=== PATIENT | female | born 1960 | race Caucasian/White ===

== ENCOUNTER 2023-08-07 10:45 | Outpatient (OUT) | payer OTHER, SELFPAY ==
--- NOTE | 2023-08-07 10:53 | MM_ITS ---
Patient Name: FÁTIMA BROWNE MR#: [id number] : 1960 Exam Date: 08/07/2023 Ordering Doctor: DR SOFIA ROBLERO D.O. RADIOLOGY REPORT PROCEDURE: MM TOMOSYNTHESIS SCREENING BI COMPARISON: MG MAMM SCREEN 3D ROBERT CAD, 03/18/2021. MG MAMM SCREEN ROBERT W CAD, 10/29/2019. INDICATIONS: Screening Calculator Name NCI Breast Cancer Risk Assessment Tool 5 Year Breast Cancer Risk 1.40% Lifetime Breast Cancer Risk 5.80% Personal Breast Cancer No Personal Ovarian Cancer No Treatments None Family Cancers Aunt-maternal with breast cancer at age ~55. LOCATION: [facility] BREAST COMPOSITION: Heterogeneously dense,which may obscure small masses. FINDINGS: DIAGNOSTIC CATEGORY 1--NEGATIVE. NO CHANGE FROM COMPARISON ASSESSMENT. Scattered benign-appearing calcifications are present. RIGHT BREAST: No significant suspicious finding. LEFT BREAST: No significant suspicious finding. RECOMMENDATIONS: ROUTINE MAMMOGRAM AND CLINICAL EVALUATION IN 12 MONTHS. PLEASE NOTE: A NORMAL MAMMOGRAM DOES NOT EXCLUDE THE POSSIBILITY OF BREAST CANCER. A CLINICALLY SUSPICIOUS PALPABLE LUMP SHOULD BE BIOPSIED. Dictated by: Gordon Valdez MD on 08/07/2023 at 12:51 Approved by: Gordon Valdez MD on 08/07/2023 at 12:52
== END 2023-08-07 10:46 | disposition home or self-care (01) ==
PROVIDERS: PCP Internal Medicine; Visit Provider Internal Medicine
DX: Z12.31 Encounter for screening mammogram for malignant neoplasm of breast (principal); Z80.3 Family history of malignant neoplasm of breast
CPT/HCPCS: 77063; 77067

== ENCOUNTER 2025-01-05 08:27 | Outpatient (OUT) | payer MEDICARE, SELFPAY ==
--- OUTSIDE RECORDS SUMMARY | 2025-01-05 08:32 | XMS_ITS | CCD ---
Author Organization [facility] Care Team Providers [facility] Consultant Name Role Phone GUSTAVO COYLE Admitting Unavailable GUSTAVO COYLE Attending Unavailable DR ASA CHURCH Consulting Unavailable GUSTAVO COYLE Consulting Unavailable ALDO TEMPLE Attending Unavailable TIM ROBLERO JR Referring Unavailable TIM ROBLERO JR Primary Care Unavailable ROSALINA JON Admitting Unavailable ROSALINA JON Attending Unavailable ROSALINA JON Referring Unavailable TIM ROBLERO JR Primary Care Unavailable ROSALINA JON Attending Unavailable ROSALINA JON Referring Unavailable TIM ROBLERO JR Primary Care Unavailable NOEMI ROBERTSON Attending Unavailable TIM ROBLERO JR Primary Care Unavailable Problems Problem Classification Problem Date Documented Da te Episodic/Chronic Gastritis and duodenitis (1 source) Acute gastritis without bleeding; Translations: [Acute gastritis without bleeding] Onset: 01-10-2024 Episodic Other gastrointestinal disorders (1 source) Other fecal abnormalities; Translations: [Other fecal abnormalities] Onset: 01-02-2024 Episodic Other screening for suspected conditions (not mental disorders or infectious disease) (4 sources) Encounter for screening mammogram for malignant neoplasm of breast; Translations: [ENC SCR MAMMO MALIG NEOPLASM BREAST] Onset: 03-18-2021 Episodic Residual codes; unclassified (1 source) Family history of malignant neoplasm of breast; Translations: [FAMILY HX MALIG NEOPLASM OF BREAST] Onset: 04-14-2021 Episodic Unclassified (2 sources) Positive Cologuard Onset: 01-02-2024 Unclassified (1 source) Esophagitis, unspecified without bleeding; Translations: [Esophagitis, unspecified without bleeding] Onset: 01-10-2024 Results Test Name Value Interpretation Reference Range Facility Glucose Glucometer (BldC) [M ass/Vol]on 01-10-2024 Glucose [Mass/Vol] 74 mg/dL Normal 65-99 [facility] Glucose [Mass/Vol] 70 mg/dL Normal 65-99 [facility] H PYLORI SCREENon 01-10-2024 H. pylori Org specific cx Ql (Essie fld) Negative Normal NEG [facility] Comment on above: Performed By: #### [id number] #### [facility] ([id number]) [address] [place] [address], [address] [place] [address] Surgical Pathologyon 024 Surgical Pathology Normal [facility] Comment on above: Result Comment: [employer] [facility] [address] [place] [address] Surgical Pathology Consultation Patient Name:ISABELA HAMILTON:1960 (Age: 63)Gender:FTaken:4Reported:01/16/2024hysician(s):Rosalina Jon D.O. ([phone])Copy To: Rec. #:[id number]: #[id number] Final Pathologic Diagnosis 1. Gastric antrum biopsy: Reactive gastritis/gastropathy. No dysplasia or intestinal metaplasia identified. Immunohistochemical stain for Helicobacter pylori (with adequate control) is negative. 2. Distal esophageal biopsy: Squamous esophageal and columnar squamocolumnar junctional mucosa showing mild chronic inflammation, and mild reactive squamous changes suggestive of reflux injury. No dysplasia or goblet cell metaplasia identified. Report Electronically Signed Out ao/4Aede Hazel MD Interpretation performed at [facility], [address] [place] [address], License number: [id number]. Clinical History Positive cologuard. Gross Description 1. Received in formalin labeled, HAMILTON antrum BX are 2 pale-ellison delicate soft tissue fragments, 0.2 and 0.5 cm in greatest dimension. The specimens are filtered and submitted in a single cassette. (1, ns, [id number], m7) TB 2. Received in formalin labeled, HAMILTON, distal esophagus BX are 4 pale-ellison delicate soft tissue fragments, 0.1-0.2 cm in greatest dimension. The specimens are filtered and submitted in a single cassette. (1, ns, [id number], m7) TB tgb/01/10/2024NSK Specimen(s) Received 1: Antrum biopsy 2: Distal esophageal biopsy Fee Codes(s): 1; 67418, 08735 2; 49104 MG MAMM SCREEN 3D ROBERT CADon 03-18-2021 MG MAMM SCREEN 3D ROBERT CAD Patient: ISABELA HAMILTON Exam Date: 03/18/2021 : 1960 Gender:F Ordering : DR. GUSTAVO COYLE . Admission #: [id number] Family : Order #: [id number] CLICK HERE TO VIEW EXAM RADIOLOGY REPORT PROCEDURE: MAMMOGRAM SCREENING 3D BILATERAL CAD COMPARISON: MG MAMM SCREEN ROBERT W CAD, 10/29/2019. MG MAMM SCREEN ROBERT W CAD, 09/03/2018. INDICATIONS: Screening mammography Calculator Name NCI Breast Cancer Risk Assessment Tool 5 Year Breast Cancer Risk 1.40% Lifetime Breast Cancer Risk 6.20% Personal Breast Cancer No Personal Ovarian Cancer No Treatments None Family Cancers Aunt-maternal with breast cancer at age 55. LOCATION: [facility] BREAST COMPOSITION: Heterogeneously dense, which may obscure small masses. FINDINGS: DIAGNOSTIC CATEGORY 2--BENIGN FINDING: RIGHT BREAST: No significant suspicious finding. Scattered benign-appearing calcifications are present. No significant change has occurred. LEFT BREAST: No significant suspicious finding. Scattered benign-appearing calcifications are present. No significant change has occurred. RECOMMENDATIONS: ROUTINE MAMMOGRAM AND CLINICAL EVALUATION IN 12 MONTHS. PLEASE NOTE: A NORMAL MAMMOGRAM DOES NOT EXCLUDE THE POSSIBILITY OF BREAST CANCER. A CLINICALLY SUSPICIOUS PALPABLE LUMP SHOULD BE BIOPSIED. Dictated by: Asa Church M.D. on 03/22/2021 at 13:09 Approved by: Asa Church M.D. on 03/22/2021 at 13:17 Normal [facility] ANES POSTPROC EVALon 020 ANES POSTPROC EVAL HNO ID: [id number] Author: Kerry Grijalva Service: ? Author Type: Physician Type: Anesthesia Postprocedure Evaluation Filed: 02/18/2020 10:38 AM Note Text: POST ANESTHESIA EVALUATION NOTE : 1960 Procedure Summary Date: 02/18/20 Room / Location: [address] Anesthesia Start: 942 Anesthesia Stop: 1010 Procedures: PHACOEMULSIFICATION CATARACT IMPLANT INTRAOCULAR LENS W/O ENDOSCOPIC CYCLOPHOTOCOAGULATION (Right Eye) OPHTHALMIC BIOMETRY BY PARTIAL COHERENCE INTERFEROMETRY W/INTRAOCULAR LENS POWER CALCULATION (Right Eye) INITIAL INSERT ANT SEGMENT AQUEOUS DRAIN DEVICE W/O EXTRAOCULAR RESERVOIR INTERNAL APPROACH INTO TRABECULAR MESHWORK (Right Eye) Diagnosis: Combined form of senile cataract of right eye Surgeon: Donny Guevara V Responsible Provider: Kerry Grijalva Anesthesia Type: MAC ASA Status: 3 Anesthesia Type: MAC Last vitals Vitals Value Taken Time BP 119/76 02/18/2020 10:20 AM Temp 36.4 ?C (97.5 ?F) 02/18/2020 10:12 AM Pulse 86 02/18/2020 10:20 AM HR SpO2 86 02/18/2020 10:38 AM Resp 16 02/18/2020 10:20 AM SpO2 94 % 02/18/2020 10:20 AM Post Anesthesia Patient Status Patient Evaluation: PACU. PACU/ICU Patient Condition: stable. Anticipated Disposition: phase 2 then home. Neurological Status: aware and responsive. Pulmonary Status: breathing comfortably on room air Airway Control: returned to baseline unsupported. Cardiovascular Status: stable. Pain Management: clinically adequate - multimodal analgesia pain management approach Postoperative Hydration: acceptable. Intraoperative Events: no significant anesthesia events Post Operative Nausea/Vomiting Status: Anesthetic Observations: no significant anesthetic observations Recommendation: continue current plan of care. SIGNATURE: Kerry Grijalva MD PATIENT NAME: Isabela Hamilton DATE: February 18, 2020 TIME: 10:38 AM CSN: [id number] Normal [facility] ANES PRE-OPon 02-18-2020 ANES PRE-OP HNO ID: [id number] Author: Kerry Grijalva Service: ? Author Type: Physician Type: Anesthesia Preprocedure Evaluation Filed: 02/18/2020 9:25 AM Note Text: ANESTHESIOLOGY DAY OF SURGERY NOTE : 1960 Procedure(s) (LRB): PHACOEMULSIFICATION CATARACT IMPLANT INTRAOCULAR LENS W/O ENDOSCOPIC CYCLOPHOTOCOAGULATION (Right) OPHTHALMIC BIOMETRY BY PARTIAL COHERENCE INTERFEROMETRY W/INTRAOCULAR LENS POWER CALCULATION (Right) INITIAL INSERT ANT SEGMENT AQUEOUS DRAIN DEVICE W/O EXTRAOCULAR RESERVOIR INTERNAL APPROACH INTO TRABECULAR MESHWORK (Right) Surgeon(s): Donny Guevara V Estimated body mass index is 21.48 kg/m? as calculated from the following: Height as of 02/04/20: 152.4 cm (5'). Weight as of 02/04/20: 49.9 kg (110 lb). Most recent hematocrit and potassium results: No results found for this basename: HCT,HEMATOCRIT,K,POTASSIU M Relevant Problems PULMONARY (+) Chronic obstructive pulmonary disease (COPD) (HCC) NEURO-PSYCH (+) TIA (transient ischemic attack) ENDO (+) Diabetes mellitus, type 2 (HCC) Other (+) HLD (hyperlipidemia) (+) Tobacco abuse I - PHYSICAL EVALUATION AIRWAY Patient intubated: No. Mallampati: I. TM distance: >3 FB. Neck ROM: full ROM without neurological symptoms. Mouth opening: adequate. Short neck: no. Thick neck: no DENTAL Dental findings: teeth intact. Additional exam findings: no II - ANESTHESIA PLAN ASA Score: 3 Anesthetic Plan: MAC NPO Status: adequate Monitoring plan: standard ASA. Postoperative analgesic plan: parenteral or oral opioids. Anesthetic Risks, Benefits, Alternatives, Personnel Discussed. Consent obtained from: patient. Patient / Surrogate agrees to blood products: blood products not planned Significant changes in the patient condition since the History and Physical, not otherwise documented in primary service progress note: no. Potential Anesthesia issues that may suggest increased risk of complications or contractions to planned procedure: none. Vitals Value Taken Time BP 136/71 02/18/2020 9:17 AM Pulse 80 02/18/2020 9:17 AM Resp 16 02/18/2020 9:17 AM Temp 36.3 ?C (97.4 ?F) 02/18/2020 9:17 AM SpO2 95 % 02/18/2020 9:17 AM Facility-Administered Medications as of 02/18/2020 Medication Dose Route Frequency - [COMPLETED] tetracaine (PF) 0.5 % 2 Drop (OPTICAINE) 2 Drop LEFT EYE q 5 MIN - [COMPLETED] PHENYLephrine 2.5 % 1 Drop (AK-DILATE, ENEDINA-SYNEPHRINE) 1 Drop LEFT EYE EVERY 5 MINUTES X 3 DOSES - [COMPLETED] tropicamide 1 % 1 Drop (MYDRIACYL) 1 Drop LEFT EYE EVERY 5 MINUTES X 3 DOSES - [COMPLETED] ketorolac 0.5 % 1 Drop (ACULAR) 1 Drop LEFT EYE q 5 MIN - [COMPLETED] Povidone-Iodine 5 % 30 mL ophth soln (BETADINE) 30 mL LEFT EYE ONCE - [COMPLETED] balanced salts 15 mL (BSS) 15 mL LEFT EYE ONCE Outpatient Medications as of 02/18/2020 Medication Sig - prednisoLONE acetate (PRED FORTE, ECONOPRED PLUS) 1 % ophthalmic suspension USE DIRECTED BY PHYSICIAN, IN OPERATIVE EYE, BEGINNING ONE DAY AFTER SURGERY - ketorolac (ACULAR) 0.5 % ophthalmic solution USE DIRECTED BY PHYSICIAN, IN OPERATIVE EYE, BEGINNING ONE DAY AFTER SURGERY - pioglitazone (ACTOS) 15 mg tablet Take 1 tablet by mouth once daily. - rosuvastatin (CRESTOR) 20 mg tablet - montelukast (SINGULAIR) 10 mg tablet - SYNJARDY XR 12.5-1,000 mg XR tab - desvenlafaxine ER (PRISTIQ) 100 mg 24 hr tablet - OZEMPIC 1 mg/dose (2 mg/1.5 mL) pnij - bromocriptine (CYCLOSET) 0.8 mg tablet Take 0.8 mg by mouth once daily. - ergocalciferol, vitamin D2, (VITAMIN D2 ORAL) Take by mouth. - latanoprost (XALATAN) 0.005 % ophthalmic solution 1 Drop daily at bedtime. - EZETIMIBE ORAL Take 5 mg by mouth. - budesonide/formoterol fumarate (SYMBICORT INHALATION) Inhale as instructed. - mometasone furoate (NASONEX NASAL) Use in the nose. I have interviewed and examined the patient. I have reviewed the medical record and/or the pre-anesthesia evaluation, pertinent labs, and test results. This contains updated information obtained within 48 hours of Surgery/Procedure. SIGNATURE: Kerry Grijalva MD PATIENT NAME: Isabela Hamilton DATE: February 18, 2020 TIME: 9:21 AM CSN: [id number] Normal [facility] NURSING PROGon 02-18-2020 NURSING PROG HNO ID: [id number] Author: Kristin Valdez) NAOMIE Courtney Service: ? Author Type: Registered Nurse Type: Nursing Progress Note Filed: 02/18/2020 10:20 AM Note Text: POST OP LEARNING RESPONSE INSTRUCTION PROVIDED TO: Patient and family member METHOD OF INSTRUCTION: Written instruction - handouts Verbal instruction PATIENT / FAMILY RESPONSE: Verbalizes understanding of: PAIN MANAGEMENT-Effective strategies to manage pain in addition to pain medication POST-OPERATIVE INSTRUCTIONS-Correct actions to take to reduce postoperative complications SYMPTOM MANAGEMENT-Correct actions to take to manage symptoms associated with his/her disease/illness WORSENING CONDITION-Signs and symptoms of a worsening condition that warrant a call to the physician FOLLOW-UP PLAN: Patient instructed to call with any further issues Contact information given. SUPPLEMENTAL MATERIAL: None REFERRAL (RECOMMENDATION): None Electronically Signed By: Kristin Courtney RN In Department: AMBULATORY SURGERY [facility] OPERATIVE NOon 02-18-2020 OPERATIVE NO HNO ID: [id number] Author: Donny Guevara V Service: Ophthalmology Author Type: Physician Type: Operative Report Filed: 02/18/2020 10:12 AM Note Text: OPERATIVE REPORT DATE OF SERVICE: February 18, 2020 PRIMARY SURGEON: Donny Guevara M.D. ADJUNCT TRAINER: None OPERATION: Phacoemulsification of cataract, insertion of toric posterior chamber intraocular lens implant, insertion of iStent, right eye. ANESTHESIA: Topical with monitored anesthesia care. PREOPERATIVE DIAGNOSIS: Combined cataract, mild primary open angle glaucoma, regular astigmatism POSTOPERATIVE DIAGNOSIS: Combined cataract, mild primary open angle glaucoma, regular astigmatism OPERATIVE INDICATIONS: BAT, astigmatism, mild primary open angle glaucoma with current use of topical ocular hypotensive OPERATIVE PROCEDURE: The patient was admitted to the operating suite where an IV and BP, EKG, and O2 monitors were placed. Nasal oxygen was administered. The operative eye was confirmed, marked, then pretreated with 2.5% tropicamide, 1% phenylephrine, and ciprofloxacin eye drops.Tetracaine drops were placed in the eye, then the patient was positioned seated on the side of the bed. With the patient fixing on a distant target, we placed osorio at the 3 and 9 o?clock position at the surgical limbus using a purple surgical marker. After repositioning the patient in the supine position, topical lidocaine gel 2% was placed in a small ribbon in the lower cul-de-sac. The patient was then prepped and draped in the usual sterile fashion for intraocular surgery. After a time-out confirming correct patient, correct eye, correct operation, presence of allergies, and correct implant, an eyelid speculum was placed. Under the operating microscope a beveled clear corneal incision was created temporally with a Blue Eye blade then a 2.4 mm keratome. Viscoat was introduced into the anterior chamber with a 30 gauge canula. The anterior capsule was opened centrally. Using the Utrata forceps a continuous curvilinear capsulorrhexis of approximately 5.5 mm round was created. Gentle hydrodissection was accomplished using preservative-free lidocaine on a 27-gauge cannula. Using the Graham phacoemulsification unit with the Countdown curved tip, the anterior chamber was entered and the nucleus was removed while it was in the bag. The epinuclear ring was dissected into several segments, then removed using the phacoemulsification unit set to the desired aspiration flow rate and ultrasound parameters. It was necessary to use chopper forceps at various intervals to aid in the fragmentation of the dense lens material. Great care was taken not to violate the posterior capsule. The silicone-tipped I and A instrument was used to remove the cortex and buff off any remaining cataractous material from the posterior capsule. The capsular bag was then reformed with Discovisc and a 24.5 diopter [id number] cylindrical power toric AcrySof lens was inserted through the lips of the wound into the capsular bag. The Intraocular lens was then rotated to an axis of 92 degrees, using the previously placed scleral ink markings as a guide. The axis determination was dictated by the preoperative vector analysis. Using the I and A instrument, the Discovisc was removed from the anterior chamber and capsular bag, and the implant was centered. The patient's head was positioned away from the operating scope, and the operating scope was positioned for intraoperative gonioscopy and iStent insertion. Viscoat was used to form the anterior chamber and to aid in visualization of the nasal anterior chamber angle. Viscoat was also used as a coupling agent for the gonioscopic lens that was placed on the cornea. Under indirect visualization with the gonioscopic lens, two iStent inject stents were placed into the trabecular meshwork in succession, approximately 2 clock hours apart. Reflux of heme was observed through the stents, confirming correct positioning. The patient's head was rotated back into primary position, and the Viscoat was removed from the eye using the silicone-tipped I/A unit. Cefuroxime 1mg in 0.1 mL normal saline was then introduced into the anterior chamber through the clear corneal incision using a 30 gauge canula. The wound was checked and found to be watertight. At the end of the procedure, the cornea was clear, the anterior chamber was deep and clear, the pupil was round, the lens implant was centered within the capsular bag, and the posterior capsule was intact. The eyelid speculum was removed and prednisolone eye drops were administered. A shield was affixed over the eye and the patient was sent to the recovery room, leaving the operating room in excellent condition. ESTIMATED BLOOD LOSS: <1mL SPECIMEN: None FINDINGS: Age-related cataract COMPLICATIONS: None Incision/Procedure Start Time: 10:00 AM Incision Close/Procedure End Time: 10:08 AM - Comanage with Dr Yadira Squires, OD; [facility] Donny GUEVARA MD [facility] PROGRESSon 02-18-2020 PROGRESS HNO ID: [id number] Author: Drew Soni (Od) Lucretia Service: ? Author Type: GUM DIPPER Type: Progress Notes Filed: 02/18/2020 8:33 AM Note Text: Encounter Diagnosis ICD-10-CM 1. Examination following surgery Z09 Impression: S/P PCIOL OS Aim [place] OU Excellent vision OS Plan: Proceed with second eye The nature of the patient's eye disease, its relationship to systemic health, its genetic components, and its prognosis have been explained to the patient/family. The treatment options/risks/benefits have been discussed. Questions answered. I have interviewed and examined Isabela Hamilton. I have confirmed and edited as necessary the chief complaint, history of present illness, past medical history, medications, family history, social history, review of systems, and exam findings as obtained by others. I agree with the assessment and plan as stated above, and have discussed the management with the patient. Drew Boykin, OD February 18, 2020 8:32 AM [facility] PT EDon 02-18-2020 PT ED HNO ID: [id number] Author: Carlton (Rn) NAOMIE Mitchell Service: Nursing Author Type: Registered Nurse Type: Patient Education Filed: 02/18/2020 9:31 AM Note Text: PRE OP LEARNING ASSESSMENT PROCEDURE/SURGERY: SURGERY: right eye catarct READINESS TO LEARN COGNITIVE ABILITY: Alert and oriented MOTIVATION TO LEARN: Eager FAMILY SUPPORT: High - Very involved in pt care PATIENT LEARNS BEST BY: Individual Instruction FACTORS AFFECTING LEARNING: None PHYSICAL LIMITATIONS AFFECTING LEARNING: None Electronically Signed By: Carlton Mitchell RN In Department: AMBULATORY SURGERY [facility] Coronavirus 2019on 0 COVID 19 Result WARD ASSISTANT Negative Normal Negative for COVID19 (SARS CoV2) by PCR. [facility] Comment on above: Result Comment: This test was developed and its performance characteristics determined by [facility] [place]. This test has been authorized by FDA under an Emergency Use Authorization (EUA). This test has been validated in accordance with the FDA's Guidance Document Policy for Diagnostics Testing in Laboratories Certified to Perform High Complexity Testing under CLIA prior to Emergency use Authorization for Coronavirus Disease 2019 during the Public Health Emergency issued on October 25, 2019. Performed By: #### C OVID ####[place] [id number] [place], [place] [phone] COVID 19 Source WARD ASSISTANT Nasopharyngeal Swab Normal [facility] Comment on above: Performed By: #### C OVID ####[id number] [place], [place] [phone] ANES POSTPROC EVALon 020 ANES POSTPROC EVAL HNO ID: [id number] Author: Chdad Javier Service: ? Author Type: Physician Type: Anesthesia Postprocedure Evaluation Filed: 02/04/2020 9:29 AM Note Text: POST ANESTHESIA EVALUATION NOTE : 1960 Procedure Summary Date: 02/04/20 Room / Location: [place] [address] / [facility] Anesthesia Start: 851 Anesthesia Stop: 912 Procedures: PHACOEMULSIFICATION CATARACT IMPLANT INTRAOCULAR LENS W/O ENDOSCOPIC CYCLOPHOTOCOAGULATION (Left Eye) OPHTHALMIC BIOMETRY BY PARTIAL COHERENCE INTERFEROMETRY W/INTRAOCULAR LENS POWER CALCULATION (Left Eye) INITIAL INSERT ANT SEGMENT AQUEOUS DRAIN DEVICE W/O EXTRAOCULAR RESERVOIR INTERNAL APPROACH INTO TRABECULAR MESHWORK (Left Eye) Diagnosis: Combined form of senile cataract of left eye Surgeon: Donny Guevara V Responsible Provider: Chadd Javier Anesthesia Type: MAC ASA Status: 2 Anesthesia Type: MAC Last vitals Vitals Value Taken Time BP 114/71 02/04/2020 9:19 AM Temp 36.2 ?C (97.2 ?F) 02/04/2020 9:19 AM Pulse 92 02/04/2020 9:19 AM HR SpO2 92 02/04/2020 9:19 AM Resp 16 02/04/2020 9:19 AM SpO2 94 % 02/04/2020 9:19 AM Post Anesthesia Patient Status Patient Evaluation: PACU. PACU/ICU Patient Condition: stable. Anticipated Disposition: phase 2 then home. Neurological Status: aware and responsive. Pulmonary Status: breathing comfortably on room air Airway Control: returned to baseline unsupported. Cardiovascular Status: stable. Pain Management: satisfactory to patient Postoperative Hydration: acceptable. Intraoperative Events: no significant anesthesia events Recommendation: continue current plan of care. SIGNATURE: Chadd Javier MD PATIENT NAME: Isabela Hamilton DATE: February 04, 2020 TIME: 9:29 AM CSN: [id number] [facility] ANES PRE-OPon 02-04-2020 ANES PRE-OP HNO ID: [id number] Author: Chadd Javier Service: ? Author Type: Physician Type: Anesthesia Preprocedure Evaluation Filed: 02/04/2020 8:25 AM Note Text: ANESTHESIOLOGY DAY OF SURGERY NOTE : 1960 Procedure(s) (LRB): PHACOEMULSIFICATION CATARACT IMPLANT INTRAOCULAR LENS W/O ENDOSCOPIC CYCLOPHOTOCOAGULATION (Left) OPHTHALMIC BIOMETRY BY PARTIAL COHERENCE INTERFEROMETRY W/INTRAOCULAR LENS POWER CALCULATION (Left) INITIAL INSERT ANT SEGMENT AQUEOUS DRAIN DEVICE W/O EXTRAOCULAR RESERVOIR INTERNAL APPROACH INTO TRABECULAR MESHWORK (Left) Surgeon(s): Donny Guevara V Estimated body mass index is 21.48 kg/m? as calculated from the following: Height as of this encounter: 152.4 cm (5'). Weight as of this encounter: 49.9 kg (110 lb). Most recent hematocrit and potassium results: No results found for this basename: HCT,HEMATOCRIT,K,POTASSIU M Relevant Problems Other (+) Primary open angle glaucoma (POAG) of both eyes, mild stage I - PHYSICAL EVALUATION AIRWAY Patient intubated: No. Mallampati: II. TM distance: >3 FB. Neck ROM: full. Mouth opening: adequate. Short neck: no. DENTAL Normal dental observations. Dental findings: teeth intact. Additional exam findings: no II - ANESTHESIA PLAN ASA Score: 2 Anesthetic Plan: MAC NPO Status: adequate Monitoring plan: Standard ASA. Postoperative analgesic plan: parenteral or oral opioids. Anesthetic Risks, Benefits, Alternatives, Personnel Discussed. Consent obtained from: patient. Patient / Surrogate agrees to blood products: blood products not planned Significant changes in the patient condition since the History and Physical, not otherwise documented in primary service progress note: no. Potential Anesthesia issues that may suggest increased risk of complications or contractions to planned procedure: none. No vitals data found for the desired time range. Facility-Administered Medications as of 02/04/2020 Medication Dose Route Frequency - NaCl 0.9% iv infusion 30 mL/hr INTRAVENOUS CONTINUOUS - [START ON 02/05/2020] lidocaine 2 % (XYLOCAINE) OTHER Orchestrator to OR - [COMPLETED] tetracaine (PF) 0.5 % 2 Drop (OPTICAINE) 2 Drop LEFT EYE q 5 MIN - [COMPLETED] PHENYLephrine 2.5 % 1 Drop (AK-DILATE, ENEDINA-SYNEPHRINE) 1 Drop LEFT EYE EVERY 5 MINUTES X 3 DOSES - [COMPLETED] tropicamide 1 % 1 Drop (MYDRIACYL) 1 Drop LEFT EYE EVERY 5 MINUTES X 3 DOSES - cyclopentolate 1 % 1 Drop (CYCLOGYL) 1 Drop LEFT EYE Pre-Op PRN - [COMPLETED] ketorolac 0.5 % 1 Drop (ACULAR) 1 Drop LEFT EYE q 5 MIN - [COMPLETED] Povidone-Iodine 5 % 30 mL ophth soln (BETADINE) 30 mL LEFT EYE ONCE - [COMPLETED] balanced salts 15 mL (BSS) 15 mL LEFT EYE ONCE Outpatient Medications as of 02/04/2020 Medication Sig - pioglitazone (ACTOS) 15 mg tablet Take 1 tablet by mouth once daily. - rosuvastatin (CRESTOR) 20 mg tablet - montelukast (SINGULAIR) 10 mg tablet - SYNJARDY XR 12.5-1,000 mg XR tab - desvenlafaxine ER (PRISTIQ) 100 mg 24 hr tablet - OZEMPIC 1 mg/dose (2 mg/1.5 mL) pnij - bromocriptine (CYCLOSET) 0.8 mg tablet Take 0.8 mg by mouth once daily. - ergocalciferol, vitamin D2, (VITAMIN D2 ORAL) Take by mouth. - latanoprost (XALATAN) 0.005 % ophthalmic solution 1 Drop daily at bedtime. - EZETIMIBE ORAL Take 5 mg by mouth. - budesonide/formoterol fumarate (SYMBICORT INHALATION) Inhale as instructed. - mometasone furoate (NASONEX NASAL) Use in the nose. I have interviewed and examined the patient. I have reviewed the medical record and/or the pre-anesthesia evaluation, pertinent labs, and test results. This contains updated information obtained within 48 hours of Surgery/Procedure. SIGNATURE: Chadd Javier MD PATIENT NAME: Isabela Hamilton DATE: February 04, 2020 TIME: 8:25 AM CSN: [id number] [facility] HISTORY PHYSICALon 0 HISTORY PHYSICAL HNO ID: [id number] Author: Rachael Baum) Laury Service: Anesthesiology Author Type: Nurse Practitioner Type: HANDP Filed: 02/04/2020 8:20 AM Note Text: HISTORY AND PHYSICAL EXAMINATION SERVICE DATE: 02/04/2020 SERVICE TIME: 8:08 AM PRIMARY CARE PHYSICIAN: Tim Roblero Jr, DO REASON FOR VISIT: Isabela Hamilton is a 59 year old female who is scheduled for Bilateral cataract surgery at the request of Dr. Donny Guevara V for consultation. My final recommendation will be communicated back to the requesting physician by way of shared medical record or letter. 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 Patient complains of blurred Vision,glare,halos,tearin g. Vision worse when watching television and driving at night due to glare. NO alleviating factors Patient denies any pain today PAST MEDICAL HISTORY Diagnosis Date - COPD (chronic obstructive pulmonary disease) (HCC) - Current smoker - Diabetes (HCC) - HLD (hyperlipidemia) - TIA (transient ischemic attack) PAST SURGICAL HISTORY Procedure Laterality Date - SECTION HX x3 - HAND SURGERY HX Right - RECONSTRUCTION OF NOSE - REMOVAL GALLBLADDER Cholecystectomy FAMILY HISTORY Problem Relation Age of Onset - No Ocular Disease Other SOCIAL HISTORY: Social History Tobacco Use - Smoking status: Current Every Day Smoker Packs/day: 1.00 Years: 25.00 Pack years: 25.00 - Smokeless tobacco: Never Used Substance Use Topics - Alcohol use: Yes Comment: Socially - Drug use: Never Prior to Admission medications as of 11/14/19 0815 Medication Sig Last Dose Taking pioglitazone (ACTOS) 15 mg tablet Take 1 tablet by mouth once daily. rosuvastatin (CRESTOR) 20 mg tablet montelukast (SINGULAIR) 10 mg tablet SYNJARDY XR 12.5-1,000 mg XR tab desvenlafaxine ER (PRISTIQ) 100 mg 24 hr tablet OZEMPIC 1 mg/dose (2 mg/1.5 mL) pnij bromocriptine (CYCLOSET) 0.8 mg tablet Take 0.8 mg by mouth once daily. ergocalciferol, vitamin D2, (VITAMIN D2 ORAL) Take by mouth. latanoprost (XALATAN) 0.005 % ophthalmic solution 1 Drop daily at bedtime. EZETIMIBE ORAL Take 5 mg by mouth. budesonide/formoterol fumarate (SYMBICORT INHALATION) Inhale as instructed. mometasone furoate (NASONEX NASAL) Use in the nose. No medication comments found. ALLERGIES No Known Allergies REVIEW OF SYSTEMS: PAIN ASSESSMENT: General: No weight loss, malaise or fevers. Neuro: Postive for TIA's, Negative for Seizures Respiratory: + COPD rare inhaler use. Current Smoker 1 ppd x 25 years Patient denies any dyspnea, cough no recent URI or bronchitis in the last 6 weeks. : Cardiovascular: +HLD on medications. Patient denies any dyspnea, recent NM, angina, arrhythmias, or valvular disease, and Denies h/o DVT or PE. GI: GERD currently not on medications. Patient denies any history of IBD, IBS, colitis, colorectal cancer, or diarrheal states. NO history of liver disease : No history of dysuria, frequency or incontinence,, stones or chronic kidney disease CHOKER SETTER: Negative for abnormal vaginal bleeding, abnormal vaginal discharge. : Denies, No LMP recorded. Endocrine: Diabetes Mellitus on oral agent Hematology: :+ ASA for preventative patient denies bleeding, bruising easily, no history of anemia and no history of prior transfusion Oncology: No history of CA metastasis, chemo within 30 days, or radiotherapy within 90 days. Has not lost 10% of body wt in 6 months. No history of oncological symptoms or problems. Psych: Depression Musculoskeletal: Negative for joint pain or swelling, back pain or muscle pain. Skin: Negative for lesions, rash and itching. Objective PHYSICAL EXAM: VITALS: Ht 5' 0 (1.52m) Wt 110 lb (49.9kg) BMI 21.48 kg/(m2). General: Alert and oriented, No acute distress Skin: Normal color, no rash, no lesions. HEENT: EOM, pupils equal, round and reactive. Cardiovascular: Normal S1 AND S2, no rubs, murmurs or gallops. No JVD. Pulse regular. Lungs: Normal breath sounds, no wheezes or crackles. Extremities: No deformity, no edema or tenderness, no joint swelling or clubbing. Neurological: Normal cognition and motor skills. Pulses: Carotid and radial pulses normal +2. Diagnostic tests reviewed for today's visit: No new labs or tests Assessment/Plan History of TIA- no residual effects - on ASA HLD- on statin COPD- rare inhaler use- CTA on exam Diabetes- on Actos- states last A1c 7.6% Smoker- current 25 pack year METS: Climb a flight of stairs or walk up a hill (5.50 METs) Patient denies any chest pain or undue shortness of breath with the above physical activity. ASA Class: 3 ANESTHESIA FINDINGS: Intubation History: No history of difficult intubation Significant Anesthesia Considerations: None Airway Exam: General: Normal appearance Mallampati Score is CLASS II ULBT: Class I - Lower incisors can bite the upper lip above the hilda line Neck: Normal appearance and function, Distance from hyoid to mentum during neck extension is at least 3 finger breaths Mouth: Normal tongue size and Mouth opening greater than 2 finger breaths Dentition: Intact Airway History: No abnormal airway history STOP BANG Score: Criteria: Age over 50 (59 year old) Score = 1 PLAN This patient is optimally prepared for surgery. CONSULTS: Patient does not require consults for optimization at this time. The Following Tests/Procedures Have Been Initiated: No orders of the defined types were placed in this encounter. Planned Anesthetic: MAC Instructions Given to Patient: Instructions located in the after visit summary. Patient given verbal and written preop instructions and voices comprehension and compliance. SIGNATURE: Rachael Schaeffer APRN.COIN WRAPPING MACHINE OPERATOR PATIENT NAME: Isabela Hamilton DATE: February 04, 2020 TIME: 8:08 AM PAGER/CONTACT #: [facility] OPERATIVE NOon 02-04-2020 OPERATIVE NO HNO ID: [id number] Author: Donny Guevara V Service: Ophthalmology Author Type: Physician Type: Operative Report Filed: 02/04/2020 9:13 AM Note Text: OPERATIVE REPORT DATE OF SERVICE: February 04, 2020 PRIMARY SURGEON: Donny Guevara M.D. ADJUNCT TRAINER: None OPERATION: Phacoemulsification of cataract, insertion of toric posterior chamber intraocular lens implant, insertion of iStent, left eye. ANESTHESIA: Topical with monitored anesthesia care. PREOPERATIVE DIAGNOSIS: Combined cataract, mild primary open angle glaucoma, regular astigmatism POSTOPERATIVE DIAGNOSIS: Combined cataract, mild primary open angle glaucoma, regular astigmatism OPERATIVE INDICATIONS: BAT 20/40, astigmatism, mild primary open angle glaucoma with current use of topical ocular hypotensive OPERATIVE PROCEDURE: The patient was admitted to the operating suite where an IV and BP, EKG, and O2 monitors were placed. Nasal oxygen was administered. The operative eye was confirmed, marked, then pretreated with 2.5% tropicamide, 1% phenylephrine, and ciprofloxacin eye drops.Tetracaine drops were placed in the eye, then the patient was positioned seated on the side of the bed. With the patient fixing on a distant target, we placed osorio at the 3 and 9 o?clock position at the surgical limbus using a purple surgical marker. After repositioning the patient in the supine position, topical lidocaine gel 2% was placed in a small ribbon in the lower cul-de-sac. The patient was then prepped and draped in the usual sterile fashion for intraocular surgery. After a time-out confirming correct patient, correct eye, correct operation, presence of allergies, and correct implant, an eyelid speculum was placed. Under the operating microscope a beveled clear corneal incision was created temporally with a Blue Eye blade then a 2.4 mm keratome. Viscoat was introduced into the anterior chamber with a 30 gauge canula. The anterior capsule was opened centrally. Using the Utrata forceps a continuous curvilinear capsulorrhexis of approximately 5.5 mm round was created. Gentle hydrodissection was accomplished using preservative-free lidocaine on a 27-gauge cannula. Using the Graham phacoemulsification unit with the Oligomerixman curved tip, the anterior chamber was entered and the nucleus was removed while it was in the bag. The epinuclear ring was dissected into several segments, then removed using the phacoemulsification unit set to the desired aspiration flow rate and ultrasound parameters. It was necessary to use chopper forceps at various intervals to aid in the fragmentation of the dense lens material. Great care was taken not to violate the posterior capsule. The silicone-tipped I and A instrument was used to remove the cortex and buff off any remaining cataractous material from the posterior capsule. The capsular bag was then reformed with Discovisc and a 22.0 diopter [id number] cylindrical power toric AcrySof lens was inserted through the lips of the wound into the capsular bag. The Intraocular lens was then rotated to an axis of 75 degrees, using the previously placed scleral ink markings as a guide. The axis determination was dictated by the preoperative vector analysis. Using the I and A instrument, the Discovisc was removed from the anterior chamber and capsular bag, and the implant was centered. The patient's head was positioned away from the operating scope, and the operating scope was positioned for intraoperative gonioscopy and iStent insertion. Viscoat was used to form the anterior chamber and to aid in visualization of the nasal anterior chamber angle. Viscoat was also used as a coupling agent for the gonioscopic lens that was placed on the cornea. Under indirect visualization with the gonioscopic lens, two iStent inject stents were placed into the trabecular meshwork in succession, approximately 2 clock hours apart. Reflux of heme was observed through the stents, confirming correct positioning. The patient's head was rotated back into primary position, and the Viscoat was removed from the eye using the silicone-tipped I/A unit. Cefuroxime 1mg in 0.1 mL normal saline was then introduced into the anterior chamber through the clear corneal incision using a 30 gauge canula. The wound was checked and found to be watertight. At the end of the procedure, the cornea was clear, the anterior chamber was deep and clear, the pupil was round, the lens implant was centered within the capsular bag, and the posterior capsule was intact. The eyelid speculum was removed and prednisolone and timolol eye drops were administered. A shield was affixed over the eye and the patient was sent to the recovery room, leaving the operating room in excellent condition. ESTIMATED BLOOD LOSS: <1mL SPECIMEN: None FINDINGS: Age-related cataract COMPLICATIONS: None Incision/Procedure Start Time: 8:59 AM Incision Close/Procedure End Time: 9:10 AM - Comanage with Dr Yadira Squires, OD; [facility] POD #1 Donny GUEVARA MD [facility] PT EDon 02-04-2020 PT ED HNO ID: [id number] Author: Jessica Squires RN Service: ? Author Type: Registered Nurse Type: Patient Education Filed: 02/04/2020 9:26 AM Note Text: POST OP LEARNING RESPONSE INSTRUCTION PROVIDED TO: Patient and Spouse METHOD OF INSTRUCTION: Individual instruction Written instruction - handouts Verbal instruction PATIENT / FAMILY RESPONSE: Verbalizes understanding of: EQUIPMENT USE-Correct use of Equipment INFECTION MANAGEMENT-Signs and symptoms of an infection and importance of contacting the physician MEDICAL REGIMEN-Importance of following prescribed medical regimen MEDICATION PRESCRIBED-Accurate knowledge of prescribed medication prior to discharge MEDICATION ROUTE-Correct route for administration of the prescribed medication PHYSICAL RESTRICTIONS-Physical restrictions and recommendations after discharge from the hospital POST-PROCEDURE INSTRUCTIONS-Correct actions to take to reduce post procedure complications PATIENT SAFETY PRINCIPLES SYMPTOM MANAGEMENT-Correct actions to take to manage symptoms associated with his/her disease/illness WORSENING CONDITION-Signs and symptoms of a worsening condition that warrant a call to the physician WOUND CARE-Correct procedure to perform wound care FOLLOW-UP PLAN: Patient instructed to call with any further issues Contact information given. SUPPLEMENTAL MATERIAL: Post op discharge instructions REFERRAL (RECOMMENDATION): None Electronically Signed By: Jessica Squires RN In Department: AMBULATORY SURGERY [facility] PT ED HNO ID: [id number] Author: Carlton Mitchell RN Service: Nursing Author Type: Registered Nurse Type: Patient Education Filed: 02/04/2020 8:20 AM Note Text: PRE OP LEARNING ASSESSMENT PROCEDURE/SURGERY: SURGERY: left eye cataract READINESS TO LEARN COGNITIVE ABILITY: Alert and oriented MOTIVATION TO LEARN: Eager FAMILY SUPPORT: None - Unavailable/disinterested PATIENT LEARNS BEST BY: Individual Instruction FACTORS AFFECTING LEARNING: None PHYSICAL LIMITATIONS AFFECTING LEARNING: None Electronically Signed By: Carlton Mitchell RN In Department: AMBULATORY SURGERY [facility] Coronavirus 2019 0 COVID 19 Result WARD ASSISTANT Negative Normal Negative for COVID19 (SARS CoV2) by PCR. [facility] Comment on above: Result Comment: This test was developed and its performance characteristics determined by [facility] [place]. This test has been authorized by FDA under an Emergency Use Authorization (EUA). This test has been validated in accordance with the FDA's Guidance Document Policy for Diagnostics Testing in Laboratories Certified to Perform High Complexity Testing under CLIA prior to Emergency use Authorization for Coronavirus Disease 2019 during the Public Health Emergency issued on October 25, 2019. Performed By: #### C OVID #### [facility] [address] [place], [place] [address] COVID 19 Source WARD ASSISTANT Nasopharyngeal Swab [facility] Comment on above: Performed By: #### C OVID #### [facility] [address], [place] [address] Pilar 12-30-2019 CNPN Telephone (OPHTLN) ----- ISABELA HAMILTON ([id number]) 1960 F Date Time Provider Department 12/30/19 DONNY GUEVARA During your visit today, we recorded the following information about you: Cindy Tam 12/30/2019 4:28 PM Signed Pt LM wanting to move February Sx to January w for cat sx. LMOM advising call back to discuss sooner Sx dates. Pt is comanaged w Dr. Squires and needs Wed Sx dates. Cindy Tam 12/31/2019 3:51 PM Signed Spoke to patient regarding below, all surgery appts scheduled to January. Allergies As of Date: 12/30/2019 (No Known Allergies) Date Reviewed: 11/14/2019 Reviewed by: Ligia Greenfield (Casting Coordinator) Brayan - Fully Assessed Reason for Visit: Schedule Surgery [1330] Prescriptions as of 12/30/2019 Sig: PIOGLITAZONE 15 MG TABLET Take 1 tablet by mouth once d* ROSUVASTATIN 20 MG TABLET MONTELUKAST 10 MG TABLET SYNJARDY XR 12.5 MG-1,000 MG * DESVENLAFAXINE SUCCINATE ER 1* OZEMPIC 1 MG/DOSE (2 MG/1.5 M* CYCLOSET 0.8 MG TABLET Take 0.8 mg by mouth once oliver* VITAMIN D2 ORAL Take by mouth. LATANOPROST 0.005 % EYE DROPS 1 Drop daily at bedtime. EZETIMIBE ORAL Take 5 mg by mouth. SYMBICORT INHALATION Inhale as instructed. NASONEX NASAL Use in the nose. Problem List As Of Date 12/30/2019 Noted Resolved Combined forms of age-related cataract of both *10/16/2019 Primary open angle glaucoma (POAG) of both eyes*10/16/2019 Anatomical narrow angle, bilateral [H40.033] 10/16/2019 Myopia with astigmatism and presbyopia, bilater*10/16/2019 Encounter Status:Closed by CINDY TAM on 12/31/19 [facility] HOSPon 11-17-2019 HOSP Patient:Migue Hamilton valente Soni MRN: Height:5' 0 (1.524 m) Weight:No patient weight recorded within the last 30 days. Outpatient Medications as of 02/04/20: pioglitazone (ACTOS) 15 mg tablet rosuvastatin (CRESTOR) 20 mg tablet montelukast (SINGULAIR) 10 mg tablet SYNJARDY XR 12.5-1,000 mg XR tab desvenlafaxine ER (PRISTIQ) 100 mg 24 hr tablet OZEMPIC 1 mg/dose (2 mg/1.5 mL) pnij bromocriptine (CYCLOSET) 0.8 mg tablet ergocalciferol, vitamin D2, (VITAMIN D2 ORAL) latanoprost (XALATAN) 0.005 % ophthalmic solution EZETIMIBE ORAL budesonide/formoterol fumarate (SYMBICORT INHALATION) mometasone furoate (NASONEX NASAL) Admission/Clinic Administered Medications as of 02/04/20: NaCl 0.9% iv infusion lidocaine 2 % (XYLOCAINE) cyclopentolate 1 % 1 Drop (CYCLOGYL) Problem List: Combined forms of age-related cataract of both eyes [H25.813] Primary open angle glaucoma (POAG) of both eyes, mild stage [H40.1131] Anatomical narrow angle, bilateral [H40.033] Myopia with astigmatism and presbyopia, bilateral [H52.13, H52.203, H52.4] Allergies: No Known Allergies Date Verified:02/04/20 Lab Values No results within the last 30 days for the following basenames: K,HCT No progress notes entered within the past 30 days [facility] Patient:Migue Hamilton MRN: Height:5' 0 (1.524 m) Weight:No patient weight recorded within the last 30 days. Outpatient Medications as of 02/18/20: prednisoLONE acetate (PRED FORTE, ECONOPRED PLUS) 1 % ophthalmic suspension ketorolac (ACULAR) 0.5 % ophthalmic solution pioglitazone (ACTOS) 15 mg tablet rosuvastatin (CRESTOR) 20 mg tablet montelukast (SINGULAIR) 10 mg tablet SYNJARDY XR 12.5-1,000 mg XR tab desvenlafaxine ER (PRISTIQ) 100 mg 24 hr tablet OZEMPIC 1 mg/dose (2 mg/1.5 mL) pnij bromocriptine (CYCLOSET) 0.8 mg tablet ergocalciferol, vitamin D2, (VITAMIN D2 ORAL) latanoprost (XALATAN) 0.005 % ophthalmic solution EZETIMIBE ORAL budesonide/formoterol fumarate (SYMBICORT INHALATION) mometasone furoate (NASONEX NASAL) Admission/Clinic Administered Medications as of 02/18/20: NaCl 0.9% iv infusion lidocaine 2 % (XYLOCAINE) cyclopentolate 1 % 1 Drop (CYCLOGYL) Povidone-Iodine 5 % 30 mL ophth soln (BETADINE) balanced salts 15 mL (BSS) Problem List: Combined forms of age-related cataract of both eyes [H25.813] Primary open angle glaucoma (POAG) of both eyes, mild stage [H40.1131] Anatomical narrow angle, bilateral [H40.033] Myopia with astigmatism and presbyopia, bilateral [H52.13, H52.203, H52.4] Chronic obstructive pulmonary disease (COPD) (HCC) [J44.9] TIA (transient ischemic attack) [G45.9] Diabetes mellitus, type 2 (HCC) [E11.9] Tobacco abuse [Z72.0] HLD (hyperlipidemia) [E78.5] Allergies: No Known Allergies Date Verified:02/18/20 Lab Values No results within the last 30 days for the following basenames: K,HCT Progress Notes (OPHT [facility]): Drew Boykin, OD 02/18/2020 8:33 AM Signed Encounter Diagnosis ICD-10-CM 1. Examination following surgery Z09 Impression: S/P PCIOL OS Aim [place] OU Excellent vision OS Plan: Proceed with second eye The nature of the patient's eye disease, its relationship to systemic health, its genetic components, and its prognosis have been explained to the patient/family. The treatment options/risks/benefits have been discussed. Questions answered. I have interviewed and examined Isabela Hamilton. I have confirmed and edited as necessary the chief complaint, history of present illness, past medical history, medications, family history, social history, review of systems, and exam findings as obtained by others. I agree with the assessment and plan as stated above, and have discussed the management with the patient. Drew Boykin, OD February 18, 2020 8:32 AM [facility] PROGRESSon 11-17-2019 PROGRESS HNO ID: [id number] Author: Criss Matos (Cot) Service: ? Author Type: Data Processing Supervisor Type: Progress Notes Filed: 11/17/2019 1:36 PM Note Text: CONFIRM AIM PLANO BOTH EYES. TORIC IOL BOTH EYES. PATIENT AWARE THAT SHE WILL NEED GLASSES FOR NEAR AND INTERMEDIATE. Criss Matos, MANOJ [facility] CNPRoxann 11-14-2019 RALF Telephone (NED) ----- ISABELA HAMILTON ([id number]) 1960 F Date Time Provider Department 11/14/19 LIGIA SCHMIDT (COIN WRAPPING MACHINE OPERATOR) END During your visit today, we recorded the following information about you: Weight Height 49.9 kg 1.524 m Ligia Schmidt APRN.MALKA 11/14/2019 8:40 AM Signed PRE-OPERATIVE ASSESSMENT (PRE ANESTHESIA) Surgeon: Jared Type of surgery: OPTH: PE IOL BOTH Patient scheduled for surgery on 12/03/2019 AND 12/17/2019 . Diagnosis: Opthsenile cataract Bilateral MEDICATIONS AND ALLERGIES REVIEWED. Current Outpatient Medications Medication Sig - rosuvastatin (CRESTOR) 20 mg tablet - montelukast (SINGULAIR) 10 mg tablet - SYNJARDY XR 12.5-1,000 mg XR tab - desvenlafaxine ER (PRISTIQ) 100 mg 24 hr tablet - OZEMPIC 1 mg/dose (2 mg/1.5 mL) pnij - bromocriptine (CYCLOSET) 0.8 mg tablet Take 0.8 mg by mouth once daily. - ergocalciferol, vitamin D2, (VITAMIN D2 ORAL) Take by mouth. - latanoprost (XALATAN) 0.005 % ophthalmic solution 1 Drop daily at bedtime. - EZETIMIBE ORAL Take 5 mg by mouth. - budesonide/formoterol fumarate (SYMBICORT INHALATION) Inhale as instructed. - mometasone furoate (NASONEX NASAL) Use in the nose. - pioglitazone (ACTOS) 15 mg tablet Take 1 tablet by mouth once daily. No current facility-administered medications for this visit. PAST MEDICAL HISTORY Diagnosis Date - COPD (chronic obstructive pulmonary disease) ([facility]) - Current smoker - Diabetes (HCC) - HLD (hyperlipidemia) - TIA (transient ischemic attack) PAST SURGICAL HISTORY Procedure Laterality Date - SECTION HX x3 - HAND SURGERY HX Right - RECONSTRUCTION OF NOSE - REMOVAL GALLBLADDER Cholecystectomy ALLERGIES: Patient has no known allergies. LATEX ALLERGY: No HISTORY: 59 year old female with bilateral change of vision that has been ongoing for months. Patient complains of blurred Vision,glare,halos,tearin g. Vision worse when watching television and driving at night due to glare. NO alleviating factors Patient denies any pain today PATIENT CAN PERFORM THE FOLLOWING: Climb a flight of stairs or walk up a hill (5.50 METs) FUNCTIONAL CLASS ASSIGNMENT: III REVIEW OF SYSTEMS DINING ROOM ATTENDANT CAFETERIA: History of TIA no residual effects. No history of stroke, or seizures, or dementia reported. RESP + COPD rare inhaler use. Current Smoker 1 ppd x 25 years Patient denies any dyspnea, cough no recent URI or bronchitis in the last 6 weeks. : CARD:+HLD on medications. Patient denies any dyspnea, recent NM, angina, arrhythmias, or valvular disease, and Denies h/o DVT or PE. GI:+ GERD currently not on medications. Patient denies any history of IBD, IBS, colitis, colorectal cancer, or diarrheal states. NO history of liver disease : No history of disease. RENAL: Denies history of renal insufficiency. ENDO: no history of diabetes, no history of thyroid problems, no history of steroid use HEME:+ ASA for preventative patient denies bleeding, bruising easily, no history of anemia and no history of prior transfusion PSYCHIATRIC: +history of depression ANESTHESIA COMPLICATIONS: no reported complications Instructions given over the phone and will be given to patient at [facility] Ligia Schmidt APRN.MALKA 11/14/2019 8:39 AM Ligia Schmidt APRN.MALKA 11/14/2019 8:29 AM Signed PATIENT PREOPERATIVE INSTRUCTIONS No ref. provider found has scheduled you for your procedure at this surgery center: [facility]: [phone] --[address] [place] [address]. Please read below carefully for your personalized instructions. Dietary Restrictions: - Nothing to eat or drink after midnight except for a sip of water with approved medications. Medications: Approved medications to take the morning of surgery with a sip of water:NONE - No diabetic medication the morning of surgery. If you start any new medications after today's visit, please contact the surgeon's office. Important Reminders: - If you are prescribed inhalers for breathing, continue using them. - Candy, mints, and tobacco products are NOT permitted the morning of surgery. - Hearing aids, dentures and glasses may be worn the morning of surgery. - NO jewelry, body piercings, makeup, hairpins or contacts are to be worn the day of surgery. If you develop symptoms such as a fever, cold, or flu, or have other changes to your health within TWO DAYS of scheduled surgery or the morning of surgery, please contact the surgery center above. Personal Belongings: -Please have photo ID and insurance cards. -If you do not have a copy of advance directives on file with us, please bring a copy with you on the day of surgery. - Leave ALL valuables and money at home or with family members. For Outpatient Procedures: - YOU MUST HAVE A RESPONSIBLE BATTERY MECHANIC TAKE YOU HOME. A ELECTRICIAN OUTSIDE OR FOREST WORKER CANNOT BE MADE A RESPONSIBLE BATTERY MECHANIC. - We recommend that a responsible person stays with you overnight to take care of you. - You cannot stay in a hotel alone after outpatient surgery. You will not be permitted to have your surgery, if you do not have someone to take care of you. Arrival Time for Surgery: - The Surgery Center or hospital where you are having surgery will call the afternoon before surgery (or Sunday for Sunday surgery) with a scheduled arrival time. - If you have not heard by 4 pm, please contact the surgery center above. Please be aware that emergency situations arise, which may delay or change your surgical time. If this happens, we will notify you as soon as possible and regret any inconvenience. Ligia Schmidt, MILLIE.COIN WRAPPING MACHINE OPERATOR Allergies As of Date: 11/14/2019 (No Known Allergies) Date Reviewed: 11/14/2019 Reviewed by: Ligia Greenfield (Malka) Brayan - Fully Assessed Reason for Visit: PACC [Other] Order(s):pioglitazone (ACTOS) 15 mg tabletTake 1 tablet by mouth once daily.Disp: Rfl: Prescriptions as of 11/14/2019 Sig: ROSUVASTATIN 20 MG TABLET MONTELUKAST 10 MG TABLET SYNJARDY XR 12.5 MG-1,000 MG * DESVENLAFAXINE SUCCINATE ER 1* OZEMPIC 1 MG/DOSE (2 MG/1.5 M* CYCLOSET 0.8 MG TABLET Take 0.8 mg by mouth once oliver* VITAMIN D2 ORAL Take by mouth. LATANOPROST 0.005 % EYE DROPS 1 Drop daily at bedtime. EZETIMIBE ORAL Take 5 mg by mouth. SYMBICORT INHALATION Inhale as instructed. NASONEX NASAL Use in the nose. PIOGLITAZONE 15 MG TABLET Take 1 tablet by mouth once d* Problem List As Of Date 11/14/2019 Noted Resolved Combined forms of age-related cataract of both *10/16/2019 Primary open angle glaucoma (POAG) of both eyes*10/16/2019 Anatomical narrow angle, bilateral [H40.033] 10/16/2019 Myopia with astigmatism and presbyopia, bilater*10/16/2019 Other instructions from your clinician: PATIENT PREOPERATIVE INSTRUCTIONS No ref. provider found has scheduled you for your procedure at this surgery center: [facility]: [phone] --[address] [place] [address]. Please read below carefully for your personalized instructions. Dietary Restrictions: - Nothing to eat or drink after midnight except for a sip of water with approved medications. Medications: Approved medications to take the morning of surgery with a sip of water:NONE - No diabetic medication the morning of surgery. If you start any new medications after today's visit, please contact the surgeon's office. Important Reminders: - If you are prescribed inhalers for breathing, continue using them. - Candy, mints, and tobacco products are NOT permitted the morning of surgery. - Hearing aids, dentures and glasses may be worn the morning of surgery. - NO jewelry, body piercings, makeup, hairpins or contacts are to be worn the day of surgery. If you develop symptoms such as a fever, cold, or flu, or have other changes to your health within TWO DAYS of scheduled surgery or the morning of surgery, please contact the surgery center above. Personal Belongings: -Please have photo ID and insurance cards. -If you do not have a copy of advance directives on file with us, please bring a copy with you on the day of surgery. - Leave ALL valuables and money at home or with family members. For Outpatient Procedures: - YOU MUST HAVE A RESPONSIBLE BATTERY MECHANIC TAKE YOU HOME. A ELECTRICIAN OUTSIDE OR FOREST WORKER CANNOT BE MADE A RESPONSIBLE BATTERY MECHANIC. - We recommend that a responsible person stays with you overnight to take care of you. - You cannot stay in a hotel alone after outpatient surgery. You will not be permitted to have your surgery, if you do not have someone to take care of you. Arrival Time for Surgery: - The Surgery Center or hospital where you are having surgery will call the afternoon before surgery (or Sunday for Sunday surgery) with a scheduled arrival time. - If you have not heard by 4 pm, please contact the surgery center above. Please be aware that emergency situations arise, which may delay or change your surgical time. If this happens, we will notify you as soon as possible and regret any inconvenience. Ligia Schmidt APRN.COIN WRAPPING MACHINE OPERATOR Prescriptions ordered this encounter Disp Refills Start End PIOGLITAZONE 15 MG TABLET 11/14/2019 Class: Med Update Route: ORAL Sig: Take 1 tablet by mouth once daily. Encounter Status:Closed by BRAYAN LIGIA on 11/14/19 [facility] PROGRESSon 10-16-2019 PROGRESS HNO ID: [id number] Author: Dnony Guevara V Service: ? Author Type: Physician Type: Progress Notes Filed: 10/16/2019 6:12 PM Note Text: The documentation for this note was completed by Huong Mcclain, MANOJ acting as a scribe for Donny GUEVARA MD. 10/16/2019 4:35 PM. ASSESSMENT / PLAN: 1. Combined cataract, both eyes - Offered cataract extraction by phacoemulsification, intraocular lens implant and iStent inject with Dr. Guevara, both eyes, left eye first - Aim: PLANO Both eyes - Flomax/alpha-christiano? No - Toric candidate: Yes - Both eyes ($787 per eye; comanage fee structure) - SYMFONY candidate: No - Anesthesia: Topical with MAC - Diabetes Mellitus No - Contact lens use No - History of LASIK/PRK/RK No - Perioperative eyedrops E-scribed No- give PA1% in surgery - Discussed initiate twice daily eyelid scrubs pending U/S biometry and surgery - Comanage with Dr Yadira Squires, OD; [facility] POD #1 Cataract Presurgical Documentation Cataract: Both eyes (OU) Patient reported symptoms: Associated symptoms Positive for: Blurred Vision, difficulty with driving (at night), difficulty with watching television, tearing, halos, glare Negative for: Itching, flashes, floaters, difficulty with reading, dryness, burning Best corrected visual acuity: Right eye 20/20-2 Left eye 20/20 Glare Testing: Right Eye High 20/40 Left Eye High 20/40 Visual Function: Isabela Hamilton states that the decline in vision from the cataract impedes the ability to drive as well as other activities of daily living. Isabela Hamilton has confirmed that she is no longer able to function adequately on a day-to-day basis because of her current visual condition. Further, it is my medical opinion that the cataract is the primary cause, or at least a significantly contributory cause of her visual dysfunction. With uncomplicated cataract surgery and lens implantation, it is my expectation that her visual function and quality of life will improve, significantly. The risks, benefits, alternatives, personnel and complications of cataract surgery with lens implantation were discussed with Isabela Hamilton in detail. she appeared to understand and asked that I proceed with plans for surgery. Patient acknowledges possible need for glasses after procedure. Informed consent form signed by physician and patient. Literature regarding cataract and cataract extraction by phacoemulsification offered. Return for preadmission testing, biometry AND intraocular lens calculations prior to surgery. 2. Primary open angle glaucoma (POAG) of both eyes, mild stage - ICD9: 365.11, 365.71, ICD10: H40.1131 Tmax unknown Current meds: Latanoprost QHS OU OCT NFL: GCA thinning superior OU, RNFL sup wedge Left eye - Cont latanoprost Both eyes qhs for now; offer iStent inject at the time of Cataract extraction 3. Anatomical narrow angle, bilateral - ICD9: 365.02, ICD10: H40.033 patent PI Both eyes 4. Myopia with astigmatism and presbyopia, bilateral - ICD9: 367.1, 367.20, 367.4, ICD10: H52.13, H52.203, H52.4 Donny GUEVARA MD The documentation recorded by the scribe accurately reflects the service I personally performed and the decisions made by me. I have confirmed and edited as necessary the relevant ophthalmic history, ROS, and the exam findings as obtained by others. I have seen and examined Isabela Hamilton. I also have reviewed and agree with the assessment and plan as stated above and agree with all of its relevant components. Donny GUEVARA MD October 16, 2019 4:35 PM [facility] PROGRESS HNO ID: [id number] Author: Deepti Bill Service: ? Author Type: GUM DIPPER Type: Progress Notes Filed: 10/16/2019 6:12 PM Note Text: ASSESSMENT/PLAN: 1. Combined forms of age-related cataract of both eyes - ICD9: 366.19, ICD10: H25.813 (primary diagnosis) Pt educated. Eval with today. Ref by Dr. Squires 2. Narrow angle glaucoma suspect of both eyes - ICD9: 365.02, ICD10: H40.033 - OCT OPTIC NERVE CIRRUS OU (BOTH EYES) S/p PI OU. Latanoprost QHS OU. GCA thinning superior OU, RNFL sup wedge OS. Dr. Squires following 3. Myopia with astigmatism and presbyopia, bilateral - ICD9: 367.1, 367.20, 367.4, ICD10: H52.13, H52.203, H52.4 Deepti Bill, OD I have confirmed and edited as necessary the relevant ophthalmic history, ROS, and the exam findings as obtained by others. I have seen and examined this patient. I have discussed the case and the management of this patient's care with the resident or fellow as appropriate. I also have reviewed and agree with the assessment and plan as stated above and agree with all of its relevant components. Deepti Bill, OD October 16, 2019 4:18 PM [facility] Encounters Encounter Date Encounter Type Care Provider Facility Start: 01-11-2024 End: 01-11-2024 Evaluation and management of inpatient NOEMI Denis ROBERTSON [facility] Start: 01-10-2024 End: 01-11-2024 Evaluation and management of inpatient ROSALINA JON [facility] Start: 01-02-2024 End: 01-02-2024 ambulatory ALDO TEMPLE [facility] Ambulatory [facility] Start: 03-18-2021 End: 03-19-2021 ambulatory GUSTAVO COYLE Facility: Payers Date Payer Category Payer Medicare [id number] 2023 Unknown [id number] 1961 Private Health Insurance [id number] 1960 Unknown [id number] 2.16.84 [id number] 1960 Unknown [id number] 2.16.8 [id number] 1960 Unknown [id number] 2.16.8 [id number] 1960 Unknown [id number] 2.16.8 [id number] 1960 Unknown [id number] 2.16.8 [id number] 1960 Unknown [id number] 2.16.8 [id number] 1960 Unknown [id number] 2.16.8 [id number] 1960 Unknown [id number] 2.16.8 [id number] 1960 Unknown [id number] 2.16.8 [id number] Summary Purpose Family History No Family History Records FoundNo Family History Records FoundNo Family History Records FoundNo Family History Records Found Advance Directives No Advanced Directives Records FoundNo Advanced Directives Records FoundNo Advanced Directives Records FoundNo Advanced Directives Records Found Additional Source Comments INFORMATION SOURCE (unrecogn ized section and content) DATE CREATED AUTHOR 03/14/2020 [facility] DATE CREATED AUTHOR AUTHOR'S ORGANIZ ATION 04/16/2021 [facility] DATE CREATED AUTHOR AUTHOR'S ORGANIZ ATION 01/04/2024 [facility] DATE CREATED AUTHOR AUTHOR'S ORGANIZ ATION 01/18/2024 [facility] FOR RECORDS PERTAINING TO PATIENTS WHO ARE OR HAVE BEEN ENROLLED IN A CHEMICAL DEPENDENCY/SUBSTANCEABUSE PROGRAM, SOME INFORMATION MAY BE OMITTED. This clinical summary was aggregated from multiple sources. Caution should be exercised in using it in the provision of clinical care. This summary normalizes information from multiple sources, and as a consequence, information in this document may materially change the coding, format and clinical context of patient data. In addition, data may be omitted in some cases. CLINICAL DECISIONS SHOULD BE BASED ON THE PRIMARY CLINICAL RECORDS. [facility] [employer] provides no warranty or guarantee of the accuracy or completeness of information in this document.
--- NOTE | 2025-01-05 08:36 | MM_ITS ---
Patient Name: FÁTIMA BROWNE MR#: [id number] : 1960 Exam Date: 01/05/2025 Ordering Doctor: DR SOFIA ROBLERO D.O. RADIOLOGY REPORT PROCEDURE: MM TOMOSYNTHESIS SCREENING BI COMPARISON: MM TOMOSYNTHESIS SCREENING BI, 08/07/2023. MG MAMM SCREEN 3D ROBERT CAD, 03/18/2021. MG MAMM SCREEN ROBERT W CAD, 10/29/2019. MG MAMM SCREEN ROBERT W CAD, 09/03/2018. INDICATIONS: Screening Calculator Name NCI Breast Cancer Risk Assessment Tool 5 Year Breast Cancer Risk 1.50% Lifetime Breast Cancer Risk 5.40% Personal Breast Cancer No Personal Ovarian Cancer No Treatments None Family Cancers Aunt-maternal with breast cancer at age ~55. LOCATION: [facility] BREAST COMPOSITION: The breasts are heterogeneously dense,which may obscure small masses. FINDINGS: DIAGNOSTIC CATEGORY 1--NEGATIVE. RIGHT BREAST: No significant suspicious finding. LEFT BREAST: No significant suspicious finding. RECOMMENDATIONS: ROUTINE MAMMOGRAM AND CLINICAL EVALUATION IN 12 MONTHS. PLEASE NOTE: A NORMAL MAMMOGRAM DOES NOT EXCLUDE THE POSSIBILITY OF BREAST CANCER. A CLINICALLY SUSPICIOUS PALPABLE LUMP SHOULD BE BIOPSIED. Dictated by: Carlton Dominguez DO on 01/05/2025 at 15:41 Approved by: Carlton Dmoinguez DO on 01/05/2025 at 15:44
--- NOTE | 2025-01-05 08:48 | CT_ITS ---
The [address] [address] Patient Name: FÁTIMA BROWNE MRN: [id number] date: 1960 Sex: F Assigned Patient Location: [facility] Current Patient Location: [facility] Accession/Order Number: [id number] Exam Date: 01/05/2025 10:47 Report Date: 01/05/2025 11:02 At the request of: SOFIA ROBLERO DO Procedure: CT lung screening low-dose LOW-DOSE SCREENING CHEST CT WITHOUT CONTRAST COMPARISON: None CLINICAL DATA: Current smoker for over 30 years. Spiral axial unenhanced low-dose images were obtained through the chest. Images were reviewed using both narrow and wide window settings. This CT exam was performed using one or more following dose reduction techniques: Automated exposure control, adjustment of the mA and/or kV according to patient size, or use of iterative reconstruction technique. The heart is within normal limits for size. There is no pericardial effusion. Coronary artery disease is seen. The ascending aorta is slightly ectatic. There is mild plaque at the aortic arch and proximal great vessels. There are few small nonpathologic lymph nodes. There is subtle dextroscoliotic curvature and endplate spurring at the spine. There is minor lingular scarring or atelectasis. There is no additional consolidation, pleural effusion or pneumothorax. Multiple tiny 2 mm scattered pulmonary nodules are seen bilaterally. There is a larger 6 mm nodule in the left lower lobe in the perihilar region on axial image 76. There is also a 4 mm nodule in the left lower lobe at the same level posteriorly. Limited cuts through the upper abdomen show prior cholecystectomy. CT/CT lung screening low-dose IMPRESSION: BILATERAL PULMONARY NODULES MEASURING UP TO 6 MM. Lung RADS category 3 - probably benign Six-month low-dose CT follow-up suggested. Impression dictated by: Gina Nicholas M.D. 01/05/2025 11:02 AM Dictation Location: [place] [address] Electronically authenticated by: [id number] Y Date: 01/05/2025 11:02
== END 2025-01-05 08:28 | disposition home or self-care (01) ==
LOC: MAMMO 08:30
PROVIDERS: PCP Internal Medicine; Visit Provider Internal Medicine
DX: Z12.31 Encounter for screening mammogram for malignant neoplasm of breast (principal); Z78.0 Asymptomatic menopausal state; F17.219 Nicotine dependence, cigarettes, with unspecified nicotine-induced disorders; R91.8 Other nonspecific abnormal finding of lung field; Z80.3 Family history of malignant neoplasm of breast
CPT/HCPCS: 71271; 77063; 77067; 77080

== ENCOUNTER 2025-08-18 08:32 | Outpatient (OUT) | payer MEDICARE, SELFPAY ==
--- OUTSIDE RECORDS SUMMARY | 2025-08-18 08:35 | XMS_ITS | Clinical Summary ---
Author Organization [facility] Address [id number] [address] [place] [address] Care Team Providers Care Brush Stainer Name Role Phone Jaswinder Guardado DO, Charles L Primary Care Provider Allergies No known active allergies Medications MedicationSigDispense QuantityRefillsLast FilledStart DateEnd DateStatus ezetimibe (ZETIA) 10 mg tablet Take 0.5 tablets (5 mg total) by mouth in the morning.01/31/2022ctive miglitoL (GLYSET) 100 MG tablet 01/31/2022ctive rosuvastatin (CRESTOR) 20 mg tablet 02/22/2022ctive montelukast (SINGULAIR) 10 mg tablet 01/31/2022ctive DULoxetine (CYMBALTA) 60 mg capsule 02/22/2022ctive BASAGLAR KWIKPEN U-100 INSULIN 100 unit/mL (3 mL) insulin pen Inject 30 Units under the skin Daily before evening meal.01/27/2022ctive desvenlafaxine (PRISTIQ) 50 mg 24 hr tablet Take 1 tablet (50 mg total) by mouth in the morning.Active multivit-min/ferrous fumarate (MULTI VITAMIN ORAL) Take by mouth.Active calcium carbonate (OS-MIHAI) 600 mg (1,500 mg) tablet Take 1 tablet (600 mg total) by mouth in the morning and 1 tablet (600 mg total) in the evening. Take with meals.Active empagliflozin-metFORMIN (SYNJARDY) 12.5-1,000 mg tablet Take by mouth 2 (two) times a day.Active OZEMPIC 2 mg/dose (8 mg/3 mL) pen injector Inject 2 mg under the skin once a week.4Active omeprazole (PriLOSEC) 40 mg capsule Take 1 capsule (40 mg total) by mouth in the morning. 30 capsule ctive Active Problems No known active problems Family History Medical HistoryRelationNameCommentsHeart attackFatherHeart attackMotherBreast cancerPaternal Aunt 1RelationNameStatusCommentsFatherDeceasedMotherDeceased Paternal Aunt 1Paternal Aunt 2Alive Social History Tobacco UseTypesPacks/DayYears UsedDateSmoking Tobacco: Every DayCigarettes Smokeless Tobacco: NeverAlcohol UseStandard Drinks/WeekCommentsYes0 (1 standard drink = 0.6 oz pure alcohol)occasionalChildcareAnswerDate RecordedChildcare Jvnsjto2102/05/2019EmploymentAnswerDate HqpqfjbpMwngrkfqlzItvcylu33/12/2019Hunger ScreeningAnswerDate RecordedWithin the past 12 months we worried whether our food would run out before we got money to buy more.Never True01/02/2024Food Insecurity - InabilityNot on file01/02/2024urpose - LifeAnswerDate Recorded Purpose and direction in xwaoDpsjmyc49/11/2021CommentsNoSex and Gender InformationValueDate RecordedSex Assigned at BirthNot on fileLegal SexFemale 04/01/2015 12:00 PM EDTGender IdentityNot on fileSexual OrientationNot on file Last Filed Vital Signs Vital SignReadingTime TakenCommentsBlood Arjjvbtn401/8601/10/2024 9:58 AM EDT Nrumt296901/10/2024 9:58 AM KQJXpgdmuqrkhm20.6 ??C (97.9 ??F)01/10/2024 8:00 AM EDTRespiratory Goxn996201/10/2024 9:58 AM EDTOxygen Kphirzgoqr64%01/10/2024 9:58 AM EDTInhaled Oxygen Concentration--Omjvpl32 kg (108 lb)01/10/2024 8:00 AM EDT Lgrwyi775.4 cm (5')01/10/2024 8:00 AM EDTBody Mass Index21.0901/10/2024 8:00 AM EDT Plan of Treatment Health MaintenanceDue DateLast DoneCommentsDepression Fwwdaoshb65/01/1971Zoster (Shingles) Vaccine (1 of 2)2008Fall Risk Vsvxahscl86/01/2024dult BMI Jhtowrtxw22/Tobacco Xwlscjanu84OVID-19 Vaccine ( - season), 11/11/2020, 10/21/2020 Influenza Janvhii3504/27/2025DTaP,Tdap and Td Vaccines (2 - Td or Tdap)08/28/2027 08/28/2017RSV ( or age 60+ yrs) (1 - 1-dose 75+ series)2033 Pdewdytzkdf70, 01/10/2024, 01/10/2024 Medical Devices Not on file Procedures Procedure NamePriorityDate/TimeAssociated DiagnosisCommentsPROVATION COLONOSCOPY Bhidkws5901/10/2024 7:50 AM EDT from Last 3 Months or Most Recently Relevant to Health Maintenance Results * Colonoscopy Report (01/10/2024 7:50 AM EDT)Specimen (Source)Anatomical Location / LateralityCollection Method / VolumeCollection TimeReceived Time Narrative SYSTEMGENERATED, DOCUMENTATION - 01/10/2024 7:50 AM EDT This order has been auto-finalized for image and report archival in PACs. *For full report details, please reach out to your physician. ??This image is visible to you in MyChart.* Authorizing ProviderResult TypeResult StatusMichael E Grillis DOIMG OR IMG ORDERABLESFinal Result from Last 3 Months or Most Recently Relevant to Health Maintenance Insurance Care Teams Team MemberRelationshipSpecialtyStart DateEnd Date Tim San Jr., [facility] [place] [address] PCP - GeneralInternal Nhbbjwlg72/26/17
--- OUTSIDE RECORDS SUMMARY | 2025-08-18 08:35 | XMS_ITS | Clinical Summary ---
Author Organization [facility] Address [address] [place] [id number] Care Team Providers Care Instrument Mechanic Name Role Phone Jaswinder Guardado DO, [facility]vi radha Allergies No known active allergies Medications MedicationSigDispense QuantityRefillsLast FilledStart DateEnd DateStatus rosuvastatin (CRESTOR) 20 mg tablet 08/08/2019Active montelukast (SINGULAIR) 10 mg tablet 10/09/2019Active SYNJARDY XR 12.5-1,000 mg XR tab 08/17/2019Active desvenlafaxine ER (PRISTIQ) 100 mg 24 hr tablet 06/23/2019Active OZEMPIC 1 mg/dose (2 mg/1.5 mL) pnij 08/17/2019Active bromocriptine (CYCLOSET) 0.8 mg tablet Take 0.8 mg by mouth once daily.Active ergocalciferol, vitamin D2, (VITAMIN D2 ORAL) Take by mouth.Active latanoprost (XALATAN) 0.005 % ophthalmic solution 1 Drop daily at bedtime.Active EZETIMIBE ORAL Take 5 mg by mouth.Active budesonide/formoterol fumarate (SYMBICORT INHALATION) Inhale as instructed.Active mometasone furoate (NASONEX NASAL) Use in the nose.Active pioglitazone (ACTOS) 15 mg tablet Take 1 tablet by mouth once daily.11/14/2019Active prednisoLONE acetate (PRED FORTE, ECONOPRED PLUS) 1 % ophthalmic suspension USE DIRECTED BY PHYSICIAN, IN OPERATIVE EYE, BEGINNING ONE DAY AFTER SURGERY 1 Bottle 02/04/2020Active ketorolac (ACULAR) 0.5 % ophthalmic solution USE DIRECTED BY PHYSICIAN, IN OPERATIVE EYE, BEGINNING ONE DAY AFTER SURGERY 1 Bottle 02/04/2020Active prednisoLONE acetate (PRED FORTE, ECONOPRED PLUS) 1 % ophthalmic suspension USE DIRECTED BY PHYSICIAN, IN OPERATIVE EYE, BEGINNING ONE DAY AFTER SURGERY 1 Bottle 02/18/2020Active ketorolac (ACULAR) 0.5 % ophthalmic solution USE DIRECTED BY PHYSICIAN, IN OPERATIVE EYE, BEGINNING ONE DAY AFTER SURGERY 1 Bottle 02/18/2020Active Active Problems ProblemNoted DateDiagnosed DateChronic obstructive pulmonary disease (COPD) 02/18/2020TIA (transient ischemic attack)02/18/2020Diabetes mellitus, type 2 02/18/2020Tobacco abuse02/18/2020HLD (hyperlipidemia)02/18/2020Combined forms of age-related cataract of both eyes10/16/2019Primary open angle glaucoma (POAG) of both eyes, mild stage10/16/2019Anatomical narrow angle, glwpadhkl02/20/2020 Myopia with astigmatism and presbyopia, /20/2020 Family History Medical HistoryRelationCommentsNo Ocular DiseaseOtherRelationStatusCommentsOther Social History Tobacco UseTypesPacks/DayYears UsedDateSmoking Tobacco: Every FznVmdpuqxmbt334 Smokeless Tobacco: NeverAlcohol UseStandard Drinks/WeekCommentsYes0 (1 standard drink = 0.6 oz pure alcohol)SociallyArea Deprivation IndexAnswerDate Recorded National Score (1-100), lower number is lower riskNot on file08/03/2020State Score (1-10), lower number is lower riskNot on file08/03/2020Data from: https://www.neighborhoodatlas.medicine.[facility].edu/. Last address used for calculationNot on file08/03/2020CommentsUnknownSex and Gender InformationValueDate RecordedSex Assigned at BirthNot on fileLegal SexFemale 10/09/2019 10:22 AM ESTGender IdentityNot on fileSexual OrientationNot on file Last Filed Vital Signs Vital SignReadingTime TakenCommentsBlood Evppkgow983/76002/18/2020 10:20 AM EDT Jjfmx535702/18/2020 10:20 AM DAHBxuowqbpoha80.4 ??C (97.5 ??F)02/18/2020 10:12 AM EDTRespiratory Hgqk1474 10:20 AM EDTOxygen Colzytmxvy54%02/18/2020 10:20 AM EDTInhaled Oxygen Concentration--Gxwpba79.9 kg (110 lb)02/04/2020 8:17 AM EDT Qqoney580.4 cm (5')02/04/2020 8:17 AM EDTBody Mass Index21.48002/04/2020 8:17 AM EDT Plan of Treatment Health MaintenanceDue DateLast DoneCommentsAnxiety Aczlbujbm52/01/1977Depression Ukmsfxaip26/01/1977Hepatitis C Lwzkkkhrq68/01/1977DTaP,Tdap,Td Vaccine (1 - Tdap)1977CT Nxbdpknwrfls52/01/2004Cologuard (FIT-DNA)2003Colonoscopy 2003Colorectal Cancer Asuyrkqzb22/01/2004Diabetes Nuyhsmfez02/01/2004Fecal Occult Blood2003Lipid Tcfdihjfv16/01/7570Txbkvfkxikltj55/01/2004 Pneumococcal Vaccine: 50+ (1 of 1 - PCV)2008Shingrix Vaccine (1 of 2) 2008Mammogram Ptecexrxv76/04//11/2019, 09/03/2018Bone Density Ipfeooukm49/01/2024dvance Directive Elzbezpbhw79/01/2025ovid-19 Vaccine (1 - 2024- season)2025Influenza Vaccine (#1)2025RSV Vaccine (1 - 1-dose 75+ series)2033 Medical Devices ImplantedTypeAreaManufacturerDevice IdentifierShelf Expiration DateModel / Serial / LotLens Iol Acrysof Trc6u 22.0 - [id number] Implanted:Qty: 1 on 02/04/2020 by Zaida Guevara V, MD at [facility] Intraocular LensLeft: Eye - [employer] [id number]/31/[id number] / [id number] / Description:-0.47Lens Iol Acrysof Trc7u 24.5 - [id number] Implanted:Qty: 1 on 02/18/2020 by Zaida Guevara V, MD at [facility] Intraocular LensRight: [employer] [id number]/30/[id number] / [id number] / Description:-0.41Istent Inject - [id number] Implanted:Qty: 1 on 02/04/2020 by Zaida Guevara V, MD at [facility] Left: EyeGLAUKOS QNVMZYVOOER99/31/[id number] / / [id number] Inject - [id number] Implanted:Qty: 1 on 02/18/2020 by Zaida Guevara V, MD at [facility] Right: EyeGLAUKOS [id number]/31/[id number] / [id number] / Insurance Care Teams Team MemberRelationshipSpecialtyStart DateEnd Date Tim San Jr., DO [address] [place] [id number] PCP - GeneralInternal Medicine10/09/19
--- NOTE | 2025-08-18 08:36 | CT_ITS ---
The [address] [address] Patient Name: FÁTIMA BROWNE MRN: [id number] date: 1960 Sex: F Assigned Patient Location: CT Current Patient Location: CT Accession/Order Number: [id number] Exam Date: 08/18/2025 09:00 Report Date: 08/18/2025 11:16 At the request of: SOFIA ROBLERO DO Procedure: CT chest wo con CT CHEST WITHOUT CONTRAST CLINICAL DATA: Follow-up nodularity COMPARISON: 01/05/2025 Spiral axial unenhanced images were obtained through the chest. Images were reviewed using both narrow and wide window settings. This CT exam was performed using one or more following dose reduction techniques: Automated exposure control, adjustment of the mA and/or kV according to patient size, or use of iterative reconstruction technique. The heart is normal size. No pericardial effusion is seen. There is coronary artery disease. No aortic aneurysm is noted. There is mild plaque at the aortic arch. Similar small mediastinal lymph nodes are present. There are calcified right hilar granulomas. Dextroscoliotic curvature and degenerative changes seen at the spine. There is minor left apical scarring. No developing consolidation, pleural effusion or pneumothorax is noted. Similar bilateral pulmonary nodularity is again seen including the 6 mm nodule at the anterior left lower lobe (axial image 49). No new suspicious pulmonary nodularity is seen. Limited imaging through the upper abdomen shows slight adrenal limb thickening. There is prior cholecystectomy. CT/CT chest wo con IMPRESSION: SIMILAR PULMONARY NODULARITY. NO ACUTE FINDINGS. Lung RADS category 2 benign Twelve-month low-dose CT follow-up suggested Impression dictated by: Gina Nicholas M.D. 08/18/2025 11:16 AM Dictation Location: [facility] Electronically authenticated by: [id number] Y Date: 08/18/2025 11:16
== END 2025-08-18 08:33 | disposition home or self-care (01) ==
LOC: CT 08:32
PROVIDERS: PCP Internal Medicine; Visit Provider Internal Medicine
DX: R91.1 Solitary pulmonary nodule (principal)
CPT/HCPCS: 71250